=== PATIENT | female | born 1960 | race Caucasian/White ===

== ENCOUNTER 2017-01-15 05:16 | Emergency (ER) | payer OTHER ==
[~2017-01-15] VITALS: Ht 165.1 cm; Wt 118.2 kg
[2017-01-15 05:18] VITALS: BP 153/87; PULSE 76; RESP 16; O2SAT 97
--- NOTE | 2017-01-15 06:26 | ED.REPORT ---
HPI-Extremity Problem Lower Date of Service January 15, 2017 ED Provider: Anirudh Jacobsen MD The patient is a 56 year year old female with a hx of osteoarthritis presents to the ED due to increasingly severe, lower, right leg pain for the past 2-3 weeks. The pain begins behind her right knee and continues down into her foot, described as "burning, cramping, and shooting." The pain is worse in the evening. This morning, she had a 30 minute episode that was so severe she came to the ED. She currently rates the pain at 3/10. Bending her knee exacerbates the pain. She has a difficult time ambulating due to the pain and has stopped going to the gym. She denies any injury that could have caused the pain. She had an MRI at [facility] last for bilateral knee pain due to osteoarthritis. She has been taking Ibuprofen every 8 hrs and Tylenol in between. The pt also reports lack of sleep. Nursing Notes Stated Complaint: SEVERE RIGHT LEG PAIN Chief Complaint: Extremity Trauma Nursing Notes Reviewed: Yes Allergies: Coded Allergies: No Known Allergies (Unverified , 01/15/17) Scheduled PRN Cyclobenzaprine (Cyclobenzaprine) 5 Mg Tablet 5 MG PO HS PRN PRN Spasm Cyclobenzaprine (Cyclobenzaprine) 5 Mg Tablet 5 MG PO HS PRN PRN Spasm General Time Seen by MD: 06:05 Chief Complaint Other (right leg pain) Hx Obtained From: Patient Arrived By: Walk-in Onset Occurred: More than a week ago... (3 weeks) Symptom Duration: Since onset Location: : Knee right Quality: Burning, Cramping, Painful, Stabbing Severity: Current: Pain level 3 out of 10 Severity: Maximum: Severe Exacerbated by: Range of motion, Bending, Movement Recent Healthcare: Recent doctor visit Similar Sx Previous: Yes Risk-Extremity Prob Lower Well's Criteria for DVT Well's DVT Score: 0 pts (low risk 5%) Past Medical History Past Medical History osteoarthritis Past Surgical History denies Social History Other Social History: Good social support, Local resident Ambulatory Status Independent Review of Systems Musculoskeletal: Reports: Extremity pain, Joint pain, Denies: Extremity swelling, Joint swelling Complete sys rev & neg: except as marked. Physical Exam Physical Exam Notes: Initial Vital Signs Vital Signs (First) Date Time Temp Pulse Resp B/P Pulse Ox O2 Delivery O2 Flow Rate FiO2 5/3/17 05:18 36.5 76 16 153/87 97 Room Air Initial VS: Reviewed Head / Eyes: Atraumatic, Normocephalic ENT: Mucous membranes moist, No scleral icterus Respiratory: Breath sounds normal, Clear to auscultation Cardiovascular: Regular rate & rhythm, Heart sounds normal Abdomen / GI: Soft, Non-tender Skin: Warm, Dry Neurologic: Alert, Oriented Lower Extremity / Pelvis / MS: No edema negative Nirmala's test negative Jeet test negative straight leg raise no effusions joint line is non tender Ankle / Foot: No edema Interpretation & Diagnostics Lab Results Interpretation Result Diagram: 01/15/17 0710 01/15/17 0710 Test 01/15/17 07:10 White Blood Count 6.6th/mm3 (3.8-10.1) Red Blood Count 4.43mil/mm3 (3.90-5.20) Hemoglobin 13.5g/dL (12.0-15.6) Hematocrit 41.3% (35.0-46.0) Mean Corpuscular Volume 93.2fL (81-100) Mean Corpuscular Hemoglobin 30.5pg (27.0-35.0) Mean Corpuscular Hemoglobin Concent 32.7% (32.0-37.0) Red Cell Distribution Width 12.5% (12.3-15.4) Platelet Count 237bil/L (150-400) Neutrophils (%) (Auto) 55.9% (40-74) Lymphocytes (%) (Auto) 32.7% (14-46) Monocytes (%) (Auto) 8.6% (4-12) Eosinophils (%) (Auto) 2.0% (0-5) Basophils (%) (Auto) 0.6% (0-3) D-Dimer < 0.50mg/L FEU (<0.50) Sodium Level 138mEq/L (134-144) Potassium Level 4.5mEq/L (3.5-5.2) Chloride Level 100mEq/L (97-108) Carbon Dioxide Level 25mmol/L (18-29) Blood Urea Nitrogen 14mg/dL (6-24) Creatinine 0.63mg/dL (0.57-1.00) Estimat Glomerular Filtration Rate 141mL/min (>59) Glucose Level 122mg/dL (60-99) Calcium Level 9.6mg/dL (8.5-10.1) Total Bilirubin 0.3mg/dL (0.0-1.2) Aspartate Amino Transf (AST/SGOT) 17U/L (0-50) Alanine Aminotransferase (ALT/SGPT) 13U/L (0-32) Alkaline Phosphatase 54U/L (25-150) Total Protein 7.2g/dL (6.4-8.4) Albumin 4.1g/dL (3.4-5.0) Re-Eval/Medical Decision Med Decision/Clinical Course 56-year-old female presenting complaining of right knee pain and right calf cramps for 2-3 weeks. She had an MRI last week and has not gotten the results yet. She has no risk factors for DVT. Her knee exam is benign with negative Nirmala's, negative Jeet's, no effusion, no bony tenderness. She has no trauma. D-dimer is negative. Labs are stable. We will treat her muscle cramps with muscle relaxers as needed. Tylenol for pain. Follow-up with primary doctor for MRI results and further management. Return precautions given. Re-Evaluation/Progress : Time of Eval: 06:43 Re-Evaluation/Progress Note: Plan for lab analysis and a shot for pain. Counseled Regarding: Diagnosis, Lab results, Need for follow-up, When/why to return to ED Discharge & Departure Impression: Primary Impression: Muscle spasm Disposition: Home Discharge Condition All VS Reviewed: Yes Condition: Stable Additional Instructions: Your symptoms are not cardiac related and are probably musculoskeletal. I am sending you home with a muscle relaxant. Take Tylenol and ibuprofen as needed for pain. Follow up with your primary care physician for further care. Return to the Emergency Department for any new or worsening symptoms. Referrals: Ainsley Baltazar PA-C (PCP) Scribe Attestation Portion of this note were transcribed by Evelin Newton. I, Dr. Jacobsen, personally performed the history, physical exam, and medical decision-making: I reviewed and confirmed the accuracy for the information in the transcribed note. Signed by: tim Cason, 01/15/17 0800 copies to: Ainsley Baltazar PA-C, Ben M MD January 15, 2017 06:26 Evelin Newton January 15, 2017 06:42
[2017-01-15 07:21] LABS: BASOPHILS % (AUTO) 0.6 % (0-3); MONOCYTES % (AUTO) 8.6 % (4-12); Mean Corpuscular Hemoglobin 30.5 pg (27.0-35.0); Mean Corpuscular Volume 93.2 fL (81-100); NEUTROPHILS % (AUTO) 55.9 % (40-74); Platelet Count 237 bil/L (150-400)
[2017-01-15] MEDS ORDERED: CYCL5TAB PO ×2 (08:18→09:23)
[2017-01-15 09:18] VITALS: BP 141/87; PULSE 75; RESP 16; O2SAT 99
== END 2017-01-15 09:19 | disposition home or self-care (01) ==
LOC: SED 05:16
DX: M62.838 Other muscle spasm (principal); M19.90 Unspecified osteoarthritis, unspecified site